=== PATIENT | male | born 1995 | race Two or more races ===

== ENCOUNTER 2017-11-30 02:59 | Emergency (ER) | payer SELFPAY ==
[~2017-11-30] VITALS: Ht 180.3 cm; Wt 95.5 kg
[2017-11-30 03:31] LABS: BASOPHILS % (AUTO) 0.3 % (0.0-2.0); EOSINOPHILS % (AUTO) 0.4 % (1.0-6.0); HEMATOCRIT 49.7 % (41-53); HEMOGLOBIN 17.1 g/dL (13.5-17.5); LYMPHOCYTES # (AUTO) 0.7 K/uL (1.0-4.8); MEAN CORPUSCULAR HEMOGLOBIN 30.1 pg (26.0-34.0); MEAN CORPUSCULAR HGB CONC 34.4 G/dL (31.0-37.0); MEAN CORPUSCULAR VOLUME 88 fL (80-100); MONOCYTES # (AUTO) 0.8 K/uL (0.1-1.0); MONOCYTES % (AUTO) 4.2 % (2.0-9.0); NEUTROPHILS # (AUTO) 16.6 K/uL (1.8-7.7); PLATELET COUNT (AUTO) 197 K/uL (150-450); RED BLOOD CELL COUNT(AUTO) 5.69 MIL/uL (4.50-5.90); RED CELL DISTRIBUTION WIDTH 13.2 % (11.5-14.5)
[2017-11-30 03:32] LABS: APPEARANCE,URINE CLEAR (CLEAR); BILIRUBIN,URINE NEGATIVE (NEGATIVE); GLUCOSE, URINE (UA) NEGATIVE (NEGATIVE); KETONES,URINE TRACE mg/dL (NEGATIVE); LEUKOCYTE ESTERASE ,URINE NEGATIVE (NEGATIVE); NITRATE,URINE NEGATIVE (NEGATIVE); OCCULT BLOOD,URINE LARGE (NEGATIVE); PROTEIN,URINE TRACE (NEGATIVE); UROBILINOGEN,URINE 0.2 mg/dL (<=1.0)
[2017-11-30 03:32] LABS: NEUTROPHILS % (AUTO) 91.1 % (40.0-70.0)
[2017-11-30 03:38] LABS: ANION GAP 8 mmol/L (8-16); CALCIUM, TOTAL 9.4 mg/dL (8.8-10.5); CARBON DIOXIDE 29 mmol/L (22-29); CHLORIDE 102 mmol/L (98-107); CREATININE 0.98 mg/dL (0.60-1.30); GLOMERULAR FILTR. RATE CALC > 60 mL/min (>60); GLUCOSE,RANDOM 145 mg/dL (70-110); POTASSIUM 4.1 mmol/L (3.5-5.1); SODIUM SERUM 139 mmol/L (136-145); UREA NITROGEN, BLOOD 18 mg/dL (7-18)
[2017-11-30 03:41] LABS: BACTERIA,URINE Few /HPF (None Seen); MUCUS,URINE Moderate LPF (None Seen); SQUAMOUS EPITHELIAL CELL,UR Rare /LPF (None Seen)
[2017-11-30 03:43] LABS: ALANINE AMINOTRANSFERASE 40 U/L (12-78); ALBUMIN 4.4 g/dL (3.4-5.0); ALKALINE PHOSPHATASE 138 U/L (46-116); ASPARTATE AMINOTRANSFERASE 14 U/L (15-37); BILIRUBIN,TOTAL 0.5 mg/dL (0.1-1.0); LIPASE 98 U/L (73-393)
[2017-11-30] MEDS ORDERED: ONDANSETRON HCL 4 MG/2 ML VIAL IVP ONE (04:00)
[2017-11-30] MEDS ORDERED: KETOROLAC TROMETHAMINE 30 MG/ML VIAL IVP ONE (04:00)
[2017-11-30] MEDS ORDERED: SODIUM CHLORIDE 0.9% 1,000 ML IV ONE (04:00)
[2017-11-30 05:27] VITALS: BP 120/76
== END 2017-11-30 05:31 | disposition home or self-care (01) ==
LOC: EMS 02:59
DX: K52.9 Noninfective gastroenteritis and colitis, unspecified (principal); R31.9 Hematuria, unspecified
CPT/HCPCS: 36415; 74176; 80053; 81001; 83690; 85025; 96361; 96374; 96375; 99285; J1885; J2405; J7030

== ENCOUNTER 2023-09-17 17:42 | Emergency (ER) | payer SELFPAY ==
[~2023-09-17] VITALS: Ht 177.8 cm; Wt 81.8 kg
[2023-09-17] MEDS ORDERED: BACI28.410 TP (21:56)
[2023-09-17] MEDS ORDERED: ACET-2080 PO (21:56)
[2023-09-17] MEDS ORDERED: IBUP-1554 PO (21:56)
[2023-09-17] MEDS: IBUPROFEN 600 MG TABLET PO ONE (22:03)
[2023-09-17] MEDS: ACETAMINOPHEN/CODEINE 300-30 MG TABLET PO ONE (22:05)
[2023-09-17] MEDS: BACITRACIN 28 GM OINTMENT TP ONE (22:06)
[2023-09-17 22:15] VITALS: BP 136/77; PULSE 84; RESP 18
[2023-09-17] MEDS: BACITRACIN 0.9 GM PACKET OINTMENT TP ONE (22:32)
== END 2023-09-17 22:39 | disposition home or self-care (01) ==
LOC: EMS 17:42
DX: T23.202A Burn of second degree of left hand, unspecified site, initial encounter (principal)
CPT/HCPCS: 16020; 99283

== ENCOUNTER 2023-09-20 11:11 | Emergency (ER) | payer MEDICAID ==
[~2023-09-20] VITALS: Ht 180.3 cm; Wt 100.0 kg
[~2023-09-20 11:11] MED LIST: ACET-2080 PO; BACI28.410 TP; IBUP-1554 PO
[2023-09-20 11:14] VITALS: TEMP 98.1
[2023-09-20 14:18] VITALS: BP 136/68; PULSE 82; RESP 16
[2023-09-20] MEDS: SILVER SULFADIAZINE 1% 25 GM CREAM TP ONE (15:25)
== END 2023-09-20 16:36 | disposition home or self-care (01) ==
LOC: EMS 11:11
DX: T23.202A Burn of second degree of left hand, unspecified site, initial encounter (principal); Z48.00 Encounter for change or removal of nonsurgical wound dressing; X08.8XXA Exposure to other specified smoke, fire and flames, initial encounter; Y93.89 Activity, other specified; Y92.89 Other specified places as the place of occurrence of the external cause; Y99.8 Other external cause status
CPT/HCPCS: 16020; 99282; Z7502; Z7610